=== PATIENT | female | born 1945 | race Two or more races ===

== ENCOUNTER 2023-10-07 19:14 | Inpatient (IN) | payer MEDICARE, OTHER ==
[~2023-10-07] VITALS: Ht 162.6 cm; Wt 58.5 kg
[2023-10-07 21:58] LABS: BASOPHILS % (AUTO) 0.4 % (0.0-2.0); EOSINOPHILS # (AUTO) 0.2 K/uL (0.0-0.7); EOSINOPHILS % (AUTO) 2.1 % (0.0-6.0); HEMATOCRIT 41 % (33-45); HEMOGLOBIN 13.6 g/dL (11.5-14.8); LYMPHOCYTES # (AUTO) 1.7 K/uL (0.8-4.8); LYMPHOCYTES % (AUTO) 18.4 % (20.0-44.0); MEAN CORPUSCULAR HEMOGLOBIN 29 PG (26.0-33.0); MEAN CORPUSCULAR HGB CONC 34 g/dl (31.0-36.0); MEAN CORPUSCULAR VOLUME 86 fL (82-100); MONOCYTES # (AUTO) 0.9 K/uL (0.1-1.30); MONOCYTES % (AUTO) 9.3 % (2.0-12.0); NEUTROPHILS # (AUTO) 6.5 K/uL (1.8-8.9); NEUTROPHILS % (AUTO) 69.8 % (43.0-81.0); PLATELET COUNT (AUTO) 218 K/uL (150-450); RED BLOOD CELL COUNT(AUTO) 4.73 MIL/uL (4.0-5.2); RED CELL DISTRIBUTION WIDTH 14.5 % (11.5-15.0); WHITE BLOOD COUNT (AUTO) 9.4 K/uL (4.3-11.0)
[2023-10-07] MEDS ORDERED: MORPHINE SULFATE INJ 2 MG/ML DISP.SYRIN IV PRN (22:00)
[2023-10-07] MEDS ORDERED: ONDANSETRON HCL/PF 4 MG/2 ML VIAL IVP PRN (22:00)
[2023-10-07] MEDS ORDERED: hydrALAZINE HCL IV 20 MG VIAL IV PRN (22:00)
[2023-10-07] MEDS ORDERED: Z GUARD REMEDY 4 OZ OINT TP PRN (22:00)
[2023-10-07] MEDS ORDERED: ACETAMINOPHEN 325 MG TABLET PO PRN (22:00)
[2023-10-07 22:29] LABS: CARBON DIOXIDE 28 mmol/L (21-32); CHLORIDE 103 mmol/L (98-107); CREATININE 0.9 mg/dL (0.6-1.3); GLUCOSE 92 mg/dL (74-106); SODIUM SERUM 135 mmol/L (136-145)
[2023-10-07 22:36] LABS: CALCIUM, SERUM 10.2 mg/dL (8.5-10.1); UREA NITROGEN, BLOOD 32 mg/dL (7-18)
[2023-10-07 23:07] VITALS: BP 140/75; TEMP 98.2; O2SAT 99
[2023-10-07 23:10] VITALS: BP 140/75; TEMP 98.2; O2SAT 99
[2023-10-08] MEDS ORDERED: BISA5TAB19 RC (00:08)
[2023-10-08] MEDS ORDERED: CARB200T PO (00:08)
[2023-10-08] MEDS ORDERED: NA P133E RC (00:08)
[2023-10-08] MEDS ORDERED: MIRT-90 PO (00:08)
[2023-10-08] MEDS ORDERED: VALS80TA31 PO (00:08)
[2023-10-08] MEDS ORDERED: LEVO25TA7 PO (00:08)
[2023-10-08] MEDS ORDERED: CHOL400T11 PO (00:08)
[2023-10-08] MEDS ORDERED: DONE10TA11 PO (00:08)
[2023-10-08] MEDS ORDERED: LEVE500T9 PO (00:08)
[2023-10-08] MEDS ORDERED: BENZ1TAB7 PO (00:08)
[2023-10-08] MEDS ORDERED: BREX1TAB PO (00:08)
[2023-10-08] MEDS ORDERED: FAMO20TA8 PO (00:08)
[2023-10-08] MEDS ORDERED: GABA-532 PO (00:08)
[2023-10-08] MEDS ORDERED: LACT10SO3 PO (00:08)
[2023-10-08 08:00] VITALS: BP 137/68; TEMP 97.8; O2SAT 98
[2023-10-08] MEDS: DOCUSATE SODIUM LIQ 100 MG/10 ML UDC PO SCH (08:20)
[2023-10-08] MEDS: POLYETHYLENE GLYCOL 3350 17 GM POWD.PACK PO SCH (08:20)
[2023-10-08] MEDS: HEPARIN SODIUM, PORCINE 5000 UNITS/1 ML VIAL SQ SCH (08:20)
[2023-10-08] MEDS ORDERED: BISA10SU11 RC (09:48)
[2023-10-08] MEDS ORDERED: ACET-73 PO ×2 (09:48)
[2023-10-08] MEDS ORDERED: LACT-215 PO (09:48)
[2023-10-08] MEDS ORDERED: LEVO50TA8 PO (09:48)
[2023-10-08] MEDS ORDERED: CARB200T8 PO (09:48)
[2023-10-08] MEDS ORDERED: ACET325T53 PO (09:48)
[2023-10-08 16:00] VITALS: BP 141/80; TEMP 98; O2SAT 99
[2023-10-09 06:31] LABS: BASOPHILS % (AUTO) 0.6 % (0.0-2.0); EOSINOPHILS # (AUTO) 0.2 K/uL (0.0-0.7); EOSINOPHILS % (AUTO) 3.5 % (0.0-6.0); HEMATOCRIT 39 % (33-45); HEMOGLOBIN 13.1 g/dL (11.5-14.8); LYMPHOCYTES # (AUTO) 1.4 K/uL (0.8-4.8); LYMPHOCYTES % (AUTO) 19.4 % (20.0-44.0); MEAN CORPUSCULAR HEMOGLOBIN 29 PG (26.0-33.0); MEAN CORPUSCULAR HGB CONC 34 g/dl (31.0-36.0); MEAN CORPUSCULAR VOLUME 85 fL (82-100); MONOCYTES # (AUTO) 0.8 K/uL (0.1-1.30); MONOCYTES % (AUTO) 11.6 % (2.0-12.0); NEUTROPHILS # (AUTO) 4.6 K/uL (1.8-8.9); NEUTROPHILS % (AUTO) 64.9 % (43.0-81.0); PLATELET COUNT (AUTO) 220 K/uL (150-450); RED BLOOD CELL COUNT(AUTO) 4.62 MIL/uL (4.0-5.2); RED CELL DISTRIBUTION WIDTH 14.2 % (11.5-15.0); WHITE BLOOD COUNT (AUTO) 7.1 K/uL (4.3-11.0)
[2023-10-09 06:55] LABS: CALCIUM, SERUM 9.6 mg/dL (8.5-10.1); CREATININE 0.8 mg/dL (0.6-1.3); MAGNESIUM 1.9 mg/dL (1.8-2.4); POTASSIUM 4.1 mmol/L (3.5-5.1)
[2023-10-10 08:30] VITALS: BP 138/90; TEMP 98; O2SAT 98
== END 2023-10-10 14:37 | DRG 641 ==
LOC: ER 19:25 → MED 22:45
PROVIDERS: ADMIT Internal Medicine; ATTEND Nurse Practitioner Acute Care
DX: R62.7 Adult failure to thrive (principal); F03.93 Unspecified dementia, unspecified severity, with mood disturbance; F03.94 Unspecified dementia, unspecified severity, with anxiety; F32.9 Major depressive disorder, single episode, unspecified; E03.9 Hypothyroidism, unspecified; E78.5 Hyperlipidemia, unspecified; I12.9 Hypertensive chronic kidney disease with stage 1 through stage 4 chronic kidney disease, or unspecified chronic kidney disease; N18.9 Chronic kidney disease, unspecified; I25.10 Atherosclerotic heart disease of native coronary artery without angina pectoris; G40.909 Epilepsy, unspecified, not intractable, without status epilepticus; J44.9 Chronic obstructive pulmonary disease, unspecified; R53.1 Weakness; M79.642 Pain in left hand; F41.9 Anxiety disorder, unspecified; Z68.22 Body mass index [BMI] 22.0-22.9, adult; F20.9 Schizophrenia, unspecified; F29 Unspecified psychosis not due to a substance or known physiological condition
CPT/HCPCS: 36415; 73130-TC; 80048-TC; 83735-TC; 84100-TC; 85025-TC; 87081-TC; 97112-TC; 97116-TC; 97530-TC; G0378; J1644